=== PATIENT | female | born 1990 | race African-American/Black ===

== ENCOUNTER 2019-03-08 13:33 | Emergency (ER) | payer OTHER ==
[~2019-03-08] VITALS: Ht 162.6 cm; Wt 130.4 kg
[2019-03-08] MEDS ORDERED: NAPROSYN500 MG PO (13:50)
[2019-03-08] MEDS ORDERED: CYCLOBENZAPRINE5 MG PO (13:51)
--- NOTE | 2019-03-08 14:13 | Diagnostic Imaging Report ---
Exam: Left knee 4 views History: Pain Comparison: None. Findings: No fracture or malalignment. Joint spaces preserved. No abnormal soft tissue calcification or soft tissue defect. Impression: No acute osseous abnormality Signed by: Dr. Alpesh Paulson M.D. on 03/08/2019 2:10 PM
== END 2019-03-08 14:35 | disposition home or self-care (01) ==
LOC: FSED 13:33
DX: M25.562 Pain in left knee (principal); M54.5 Low back pain; S39.012A Strain of muscle, fascia and tendon of lower back, initial encounter; X50.1XXA Overexertion from prolonged static or awkward postures, initial encounter; I10 Essential (primary) hypertension
CPT/HCPCS: 99283